=== PATIENT | female | born 1965 | race Caucasian/White ===

== ENCOUNTER → 2017-06-05 | Outpatient (CLI) | payer OTHER | END | disposition home or self-care (01) | LOC: CFH 08:03 | PROVIDERS: ATTEND Nurse Practitioner Family | DX: Z12.31 Encounter for screening mammogram for malignant neoplasm of breast (principal); Z13.820 Encounter for screening for osteoporosis; M89.9 Disorder of bone, unspecified | CPT/HCPCS: 77080; G0202 ==

== ENCOUNTER 2018-03-26 13:18 | Day surgery (SDC) | payer OTHER ==
[~2018-03-26] VITALS: Ht 172.7 cm; Wt 100.0 kg
[~2018-03-26 13:18] MED LIST: LOSA100T6 PO; OMEP-110 PO
[2018-03-26] MEDS ORDERED: LIDOCAINE-MPF 1%, 2ML ONE (13:50)
[2018-03-26] MEDS ORDERED: LACTATED RINGERS 1,000 ML IV SCH (13:52)
[2018-03-26 13:58] VITALS: BP 121/81
[2018-03-26] MEDS ORDERED: LIDOCAINE-MPF 1%, 2ML INFIL ONE (14:00)
[2018-03-26] MEDS ORDERED: LIDOCAINE/PF 1%, 30ML ONE (15:27)
[2018-03-26] MEDS ORDERED: EPINEPHRINE 1 MG/ML, 1ML ONE (15:27)
[2018-03-26] MEDS ORDERED: BUPIVACAINE/PF 0.25% ONE (15:27)
[2018-03-26] MEDS ORDERED: ONDANSETRON ODT 8 MG PO ONE (15:30)
[2018-03-26] MEDS ORDERED: OxyconTIN ER 10 MG TAB.ER PO ONE (15:30)
[2018-03-26] MEDS ORDERED: ACETAMINOPHEN 500 MG TABLET PO ONE (15:30)
[2018-03-26] MEDS ORDERED: GABAPENTIN 300 MG CAPSULE PO ONE (15:30)
[2018-03-26] MEDS ORDERED: SCOPOLAMINE PATCH, 1.5MG PATCH.TD72 TD ONE ×2 (15:30→15:33)
[2018-03-26] MEDS ORDERED: OxyconTIN ER 10 MG TAB.ER ONE (15:33)
[2018-03-26] MEDS ORDERED: GABAPENTIN 300 MG CAPSULE ONE (15:33)
[2018-03-26] MEDS ORDERED: ONDANSETRON ODT 8 MG ONE (15:33)
[2018-03-26] MEDS ORDERED: ACETAMINOPHEN 500 MG TABLET ONE (15:34)
[2018-03-26] MEDS ORDERED: FENTANYL PF 100 MCG/2ML ONE (15:34)
[2018-03-26] MEDS ORDERED: MIDAZOLAM 1 MG/ML, 2ML ONE (15:35)
[2018-03-26] MEDS ORDERED: ONDANSETRON 2MG/ML, 2ML ONE (15:58)
[2018-03-26] MEDS ORDERED: CEFAZOLIN 1,000 MG ONE (15:58)
[2018-03-26] MEDS ORDERED: DEXAMETHASONE 4 MG/ML, 1ML ONE (15:58)
[2018-03-26] MEDS ORDERED: PROPOFOL 10 MG/ML, 20ML ONE (15:58)
[2018-03-26] MEDS ORDERED: EPHEDRINE 50 MG/ML, 1ML ONE (16:19)
[2018-03-26] MEDS ORDERED: BUPIVACAINE/PF-EPI 0.25% 1:200K IM ONE (16:21)
[2018-03-26] MEDS ORDERED: MEPERIDINE/PF 25MG/0.5ML IVPush PRN (17:00)
[2018-03-26] MEDS ORDERED: FENTANYL PF 100 MCG/2ML IV PRN (17:00)
[2018-03-26] MEDS ORDERED: hydrALAzine 20 MG/ML, 1ML IV PRN (17:00)
[2018-03-26] MEDS ORDERED: PROMETHAZINE 25 MG/ML, 1ML IV PRN (17:00)
[2018-03-26] MEDS ORDERED: MIDAZOLAM 1 MG/ML, 2ML IV PRN (17:00)
[2018-03-26] MEDS ORDERED: LABETALOL 5MG/ML, 20ML IV PRN (17:00)
[2018-03-26] MEDS ORDERED: HYDROmorphone 1 MG/ML, 1ML IV PRN (17:00)
[2018-03-26] MEDS ORDERED: MORPHINE SULFATE 4 MG/ML, 1ML IVPush PRN (17:00)
[2018-03-26] MEDS ORDERED: HALOPERIDOL 5 MG/ML IV PRN (17:00)
[2018-03-26] MEDS ORDERED: ALBUTEROL/IPRATROPIUM 2.5MG/0.5MG, 3 ML NPPB PRN (17:00)
[2018-03-26] MEDS ORDERED: EPHEDRINE 50 MG/ML, 1ML IM PRN (17:00)
[2018-03-26] MEDS ORDERED: DIAZEPAM 5 MG/ML, 2ML IVPush PRN (17:00)
[2018-03-26] MEDS ORDERED: OXYcodone 5 MG/5 ML ORAL.SOL UDC PO PRN (17:00)
[2018-03-26] MEDS ORDERED: LORazepam 2 MG/ML, 1ML IVPush PRN (17:00)
[2018-03-26] MEDS ORDERED: MEPERIDINE/PF 50 MG/ML ONE (17:04)
[2018-03-26] MEDS ORDERED: OXYcodone 5 MG/5 ML ORAL.SOL UDC ONE (18:51)
[2018-03-26] MEDS ORDERED: ACETAMINOPHEN 325 MG TABLET PO PRN (19:30)
[2018-03-26] MEDS ORDERED: HYDROcodone/APAP 5/325 TABLET PO PRN (19:30)
[2018-03-26] MEDS ORDERED: PROMETHAZINE 25 MG/ML, 1ML IM PRN (19:30)
== END 2018-03-26 22:52 | disposition home or self-care (01) ==
LOC: OUT 13:18 → 4NOR 19:20 → OUT 22:52
PROVIDERS: ATTEND Podiatrist Foot & Ankle Surgery
DX: M20.12 Hallux valgus (acquired), left foot (principal); M20.11 Hallux valgus (acquired), right foot; M20.42 Other hammer toe(s) (acquired), left foot; K21.9 Gastro-esophageal reflux disease without esophagitis; I10 Essential (primary) hypertension
CPT/HCPCS: 28285; 28292; C1713; J0171; J0690; J1100; J2175; J2250; J2405; J2704; J3010; J3490; J7120; Q0162